=== PATIENT | male | born 1990 | race Caucasian/White ===

== ENCOUNTER 2016-10-04 01:42 | Emergency (ER) | payer OTHER ==
[2016-10-04] VITALS (7 sets, daily range): BP systolic 109–157; BP diastolic 56–100; PULSE 88–110; RESP 18–20; TEMP 97.5–98.1; O2SAT 96–100
[~2016-10-04] VITALS: Ht 165.1 cm; Wt 80.0 kg
--- NOTE | 2016-10-04 02:25 | PD ---
HPI Chief Complaint: Psychiatric Symptoms Time Seen by Provider: 02:15 Travel History International Travel<30 days: No Contact w/Intl Traveler<30days: No Traveled to known affect area: No History of Present Illness HPI This is a 26-year-old male with no significant past medical history presents under Rodas act initiated by the Police Department. The patient reports that for most of his life is been feeling depressed. He says the has an " existential terror" and when he looks up at the tony he feels nothing but emptiness. Symptoms have been worsening and so tonight he was feeling suicidal and called the police. He says that he was holding a knife and was contemplating killing himself however he says that he did not have the courage to do so He reports that he drinks on a daily basis, tonight he drank 3 PBRs. Denies any drug use. He reports that for the past 4 years she travels, hitchhikes or jumps on trains never staying in the same place for very long. He has been in the [facility] for 1-2 weeks. He is feeling very anxious at this time is requesting something to help with his anxiety. He has no other complaints at this time. [facility] Past Medical History Medical History: Denies Significant Hx Tetanus Vaccination: > 5 Years Influenza Vaccination: No Past Surgical History Surgical History: No Previous Surgery Social History Alcohol Use: Yes (Daily) Tobacco Use: Yes (1/2 pack per day) Substance Use: No Allergies-Medications (Allergen,Severity, Reaction): Coded Allergies: No Known Allergies (Unverified , 10/04/16) Reported Meds & Prescriptions Reported Meds & Active Scripts Active No Active Prescriptions or Reported Medications Review of Systems Except as stated in HPI: all other systems reviewed are Neg Physical Exam Narrative GENERAL: Well-developed well-nourished male who appears quite anxious SKIN: Warm and dry. HEAD: Atraumatic. Normocephalic. EYES: Pupils equal and round. No scleral icterus. No injection or drainage. ENT: No nasal bleeding or discharge. Mucous membranes pink and moist. NECK: Trachea midline. No JVD. CARDIOVASCULAR: Regular rate and rhythm. No murmur appreciated. RESPIRATORY: No accessory muscle use. Clear to auscultation. Breath sounds equal bilaterally. GASTROINTESTINAL: Abdomen soft, non-tender, nondistended. Hepatic and splenic margins not palpable. MUSCULOSKELETAL: No obvious deformities. NEUROLOGICAL: Awake and alert. No obvious cranial nerve deficits. Motor grossly within normal limits. Normal speech. PSYCHIATRIC: Depressed, anxious; insight and judgment appear within normal limits Data Data Last Documented VS Vital Signs Date Time Temp Pulse Resp B/P Pulse Ox O2 Delivery O2 Flow Rate FiO2 10/04/16 02:03 97.7 88 20 100 10/04/16 01:53 157/100 Orders Complete Blood Count With Diff (10/04/16 02:03) Comprehensive Metabolic Panel (10/04/16 02:03) Drug Screen, Random Urine (10/04/16 02:03) Alcohol (Ethanol) (10/04/16 02:03) Psych Screen (10/04/16 02:03) Lorazepam Inj (Ativan Inj) (10/04/16 02:30) Labs Laboratory Tests Test 10/04/16 10/04/16 02:10 02:14 White Blood Count 4.6 TH/MM3 Red Blood Count 5.58 MIL/MM3 Hemoglobin 17.0 GM/DL Hematocrit 48.5 % Mean Corpuscular Volume 86.9 FL Mean Corpuscular Hemoglobin 30.5 PG Mean Corpuscular Hemoglobin 35.1 % Concent Red Cell Distribution Width 15.0 % Platelet Count 201 TH/MM3 Mean Platelet Volume 6.7 FL Neutrophils (%) (Auto) 36.1 % Lymphocytes (%) (Auto) 50.9 % Monocytes (%) (Auto) 11.3 % Eosinophils (%) (Auto) 1.0 % Basophils (%) (Auto) 0.7 % Neutrophils # (Auto) 1.7 TH/MM3 Lymphocytes # (Auto) 2.4 TH/MM3 Monocytes # (Auto) 0.5 TH/MM3 Eosinophils # (Auto) 0.0 TH/MM3 Basophils # (Auto) 0.0 TH/MM3 CBC Comment DIFF FINAL Differential Comment Sodium Level 139 MEQ/L Potassium Level 3.8 MEQ/L Chloride Level 104 MEQ/L Carbon Dioxide Level 25.7 MEQ/L Anion Gap 9 MEQ/L Blood Urea Nitrogen 8 MG/DL Creatinine 0.71 MG/DL Estimat Glomerular Filtration 134 ML/MIN Rate Random Glucose 90 MG/DL Calcium Level 8.8 MG/DL Total Bilirubin 0.4 MG/DL Aspartate Amino Transf 109 U/L (AST/SGOT) Alanine Aminotransferase 84 U/L (ALT/SGPT) Alkaline Phosphatase 84 U/L Total Protein 7.5 GM/DL Albumin 3.7 GM/DL Ethyl Alcohol Level 244 MG/DL Urine Opiates Screen NEG Urine Barbiturates Screen NEG Urine Amphetamines Screen NEG Urine Benzodiazepines Screen NEG Urine Cocaine Screen NEG Urine Cannabinoids Screen NEG MDM Medical Decision Making Medical Screen Exam Complete: Yes Emergency Medical Condition: Yes Medical Record Reviewed: Yes Differential Diagnosis Major depressive disorder, depressive disorder not otherwise specified, adjustment reaction, acute psychosis, substance induced mood disorder, generalized anxiety disorder Narrative Course This is a 26-year-old male who presents under a Rodas act for depression, suicidal ideation. He is feeling quite anxious at that time, somewhat tearful. He will be given a dose of Ativan. Mental health screening discussed with the patient. Psychiatric screen ordered. The patient is medically cleared for psychiatric disposition. Scripts No Active Prescriptions or Reported Meds Bladimir Mitchell Oct 04, 2016 02:25
[2016-10-04 02:28] LABS: AUTOMATED NEUTROPHIL # 1.7 TH/MM3 (1.8-7.7); BASOPHIL % 0.7 % (0.0-2.0); HEMATOCRIT 48.5 % (39.0-51.0); HEMO FLAGS DIFF FINAL; LYMPH % 50.9 % (9.0-44.0); LYMPHOCYTE # 2.4 TH/MM3 (1.0-4.8); MEAN CELL VOLUME 86.9 FL (80.0-100.0); MEAN CORPUSCULAR HEMOGLOBIN 30.5 PG (27.0-34.0); MEAN CORPUSCULAR HGB CONC 35.1 % (32.0-36.0); MONO % 11.3 % (0.0-8.0); NEUT % 36.1 % (16.0-70.0); PLATELET COUNT 201 TH/MM3 (150-450); RED BLOOD COUNT 5.58 MIL/MM3 (4.50-5.90); WHITE BLOOD COUNT 4.6 TH/MM3 (4.0-11.0)
[2016-10-04] MEDS ORDERED: LORazepam 2 MG/ML VIAL IM ONE (02:30)
[2016-10-04 02:39] LABS: AMPHETAMINE, URINE NEG (NEG); BARBITURATES, URINE NEG (NEG); COCAINE, URINE NEG (NEG)
[2016-10-04 02:43] LABS: ALKALINE PHOSPHATASE 84 U/L (45-117); TOTAL BILIRUBIN ADULT 0.4 MG/DL (0.2-1.0)
[2016-10-04 02:48] LABS: ALT (GPT) 84 U/L (12-78); ANION GAP 9 MEQ/L (5-15); AST (GOT) 109 U/L (15-37); BICARBONATE 25.7 MEQ/L (21.0-32.0); BLOOD UREA NITROGEN 8 MG/DL (7-18); CHLORIDE 104 MEQ/L (98-107); GLOMERULAR FILTRATION RATE 134 ML/MIN (>89); POTASSIUM 3.8 MEQ/L (3.5-5.1); SODIUM (NA) 139 MEQ/L (136-145)
[2016-10-04] MEDS ORDERED: ACETAMINOPHEN 325 MG TAB PO ONE (03:15)
[2016-10-04] MEDS ORDERED: chlordiazePOXIDE 25 MG CAP PO PRN ×2 (10:45→16:00)
--- NOTE | 2016-10-04 16:35 | MB ---
cc: YORDAN LAMBERT MD DATE OF CONSULTATION 10/04/2016 REQUESTING PHYSICIAN Emergency department. REASON FOR CONSULTATION Rodas Act. HISTORY OF THE PRESENT ILLNESS Mr. Fraser is a 26-year-old male with a reported history of bipolar illness as well as anxiety who presents on a Rodas Act from [facility] department alleging that the patient told officers that he was feeling suicidal and wanting help. Of note, the patient had a significantly elevated alcohol level of 244 on presentation here. Reviewing the electronic medical record I note this is the patient's first visit to [facility]. The patient was seen and examined. Case discussed with nurse in the J pod. There has been no evidence of any suicidality or homicidality on the J pod. On my examination today, the patient is clinically sober. He says that he is having a lot of social issues "but I do not want to hurt myself or anyone else". He denies suicidal or homicidal ideation at this time. He does admit to some mild mood instability but notes that his sleep remains good even if his appetite is somewhat poor. No anhedonia. No reported racing thoughts. No reported hopelessness, worthlessness, or morbid guilt. No increased goal directed activity. No other depressive or hypomanic / manic symptoms in evidence. He denies any auditory and visual hallucinations, and I can elicit no delusional beliefs. The remainder of the psychiatric review of symptoms is negative. PAST PSYCHIATRIC HISTORY The patient endorses a history of bipolar disorder and anxiety. He has not seen a psychiatrist in a couple of years at least he tells me. He denies a history of psychiatric admission or suicide attempts. He is presently on no psychotropic medications. FAMILY HISTORY The patient is unsure of his family psychiatric history. CHEMICAL DEPENDENCY HISTORY The patient reports that he drinks two or three x 4-packs of beer per day. He says that these are the tall boy, high gravity beers. He endorses a history of withdrawal seizures in the past but no delirium tremens. He has a history of open container charges. He uses a variable amount of tobacco. He denies any other substance use. SOCIAL HISTORY The patient reports that he is originally from [place] but is presently without stable housing. He says that he is headed to [place] because he has some friends that he can stay with there. He is single and has no children. He is not presently working. He denies any history. Denies any legal issues. No reported access to guns or firearms. PAST MEDICAL HISTORY The patient denies any medical history. REVIEW OF SYSTEMS No reported headache, vision or hearing changes, chest pain, shortness of breath, bowel or bladder issues. No other somatic complaints. PHYSICAL EXAMINATION A physical examination was completed in the emergency room by the ER staff and the patient was medically cleared. On my examination today the patient appears to be in no acute physical distress. No abnormal motor movements noted. The patient is mildly diaphoretic but has no hand tremor and no mydriasis or other signs of withdrawal. Labs and vital signs reviewed. MENTAL STATUS EXAMINATION The patient is in a hospital gown. He is fairly well groomed and certainly maintaining basic hygiene. He is awake, alert, oriented times three. No signs of delirium. No abnormal motor movements noted. Speech is within normal limits for rate, tone and volume. Language and fund of knowledge seem at least average for age. Mood is described as somewhat unstable but affect is fairly full and reactive. Thought process linear. No loosening of associations. No evident delusions. Denies auditory and visual hallucinations. Denies suicidal or homicidal ideations at this time. Insight and judgment are fair. ASSESSMENT AND PLAN 1. Adjustment disorder, unspecified, F43.20. 2. Alcohol dependence, F10.20. This is a 26-year-old male with psychiatric history as detailed above who presents under a Rodas Act alleging that the patient made statements of a suicidal nature. The patient was apparently intoxicated with alcohol at the time. He is clinically sober at the time of my evaluation and is denying any suicidal or homicidal ideation. He does admit to some mild mood instability and anxiety but I can elicit no other symptoms consistent with a severely unstable mood, anxiety or psychotic disorder in this patient at this time. He appears to be attending to his basic needs. I car rider that the patient does not meet Rodas Act criteria at this time. I have lifted the Rodas Act. I have offered the patient voluntary psychiatric hospitalization for initiation of psychotropic medications to treat with psychiatric symptoms he does have, but he has declined this. I have likewise offered to get the patient to a drug and alcohol treatment facility for management of his alcohol dependence, but he has declined this as well. The patient has accepted a referral for outpatient psychiatric and chemical dependency services, and we have provided this to him. I have counseled the patient regarding warning signs for need to return to the psychiatric emergency room as part of a general safety plan. The patient is psychiatrically cleared for discharge from the ED. Thank you very much for this consultation. Yordan BLAKE /3:58 PM /4:05 PM [facility]ON[facility]
== END 2016-10-04 19:15 | disposition home or self-care (01) ==
LOC: NEPA 01:42 → NEPJ 19:15
DX: F43.20 Adjustment disorder, unspecified (principal); F10.20 Alcohol dependence, uncomplicated; F41.9 Anxiety disorder, unspecified; F31.9 Bipolar disorder, unspecified; F17.210 Nicotine dependence, cigarettes, uncomplicated; Y90.8 Blood alcohol level of 240 mg/100 ml or more
CPT/HCPCS: 80053; 80307; 80320; 85025; 96372; 99285; J2060